=== PATIENT | male | born 1950 | race Caucasian/White ===

== ENCOUNTER → 2016-10-05 | Outpatient (CLI) | payer MEDICARE ==
[~2016-10-05] MED LIST: AMAR4TAB PO; ASPI81CH CHEW; ATOR1TAB18 PO; CANA300T PO; CARV3.12 PO; GABA300C5 PO; HYDR-3583 PO; ISOS60TA PO; LISI10TA3 PO; METF850T PO; METH750T PO; OXYC1TAB63 PO; PERC5TAB12 PO; PRED20 PO; ROBA500T PO; ROBA750T PO; WARF-23 PO
[2016-10-05 10:43] LABS: INTERNATIONAL NORMALIZED RATIO 1.7 RATIO; PROTHROMBIN TIME - PATIENT 19.6 SEC (9.8-11.6)
== END ==
LOC: CLAB 10:01
PROVIDERS: ATTEND Specialist
DX: Z51.81 Encounter for therapeutic drug level monitoring (principal); Z79.01 Long term (current) use of anticoagulants
CPT/HCPCS: 36415; 85610

== ENCOUNTER → 2016-10-12 | Outpatient (CLI) | payer MEDICARE ==
[2016-10-12 10:09] LABS: HDL CHOLESTEROL 34.1 MG/DL (40.0-60.0); INDIRECT BILIRUBIN 0.5 MG/DL (0.0-0.8); TOTAL BILIRUBIN ADULT 0.7 MG/DL (0.2-1.0)
== END ==
LOC: CLAB 09:12
PROVIDERS: ATTEND Family Medicine
DX: E78.2 Mixed hyperlipidemia (principal); E11.40 Type 2 diabetes mellitus with diabetic neuropathy, unspecified; Z79.899 Other long term (current) drug therapy
CPT/HCPCS: 36415; 80061; 80076; 82947

== ENCOUNTER → 2016-10-14 | Outpatient (CLI) | payer MEDICARE ==
[2016-10-14 10:15] LABS: INTERNATIONAL NORMALIZED RATIO 1.9 RATIO; PROTHROMBIN TIME - PATIENT 21.3 SEC (9.8-11.6)
[2016-10-14 10:37] LABS: ALKALINE PHOSPHATASE 79 U/L (45-117); ALT (GPT) 28 U/L (12-78); ANION GAP 7 MEQ/L (5-15); AST (GOT) 19 U/L (15-37); BICARBONATE 28.4 MEQ/L (21.0-32.0); BLOOD UREA NITROGEN 18 MG/DL (7-18); CHLORIDE 104 MEQ/L (98-107); GLOMERULAR FILTRATION RATE 64 ML/MIN (>89); GLUCOSE,FASTING 120 MG/DL (74-99); POTASSIUM 4.8 MEQ/L (3.5-5.1); SODIUM (NA) 139 MEQ/L (136-145); TOTAL BILIRUBIN ADULT 0.6 MG/DL (0.2-1.0)
[2016-10-14 16:06] LABS: HEMOGLOBIN A1a 1.1 %; HEMOGLOBIN A1b 2.5 %; HEMOGLOBIN Ao 81.8 %; HEMOGLOBIN P3 4.2 %
== END ==
LOC: CLAB 09:41
PROVIDERS: ATTEND Specialist
DX: E11.65 Type 2 diabetes mellitus with hyperglycemia (principal); I10 Essential (primary) hypertension; E78.00 Pure hypercholesterolemia, unspecified; Z51.81 Encounter for therapeutic drug level monitoring
CPT/HCPCS: 36415; 80053; 83036; 85610

== ENCOUNTER → 2016-10-24 | Outpatient (CLI) | payer MEDICARE ==
[2016-10-24 10:32] LABS: INTERNATIONAL NORMALIZED RATIO 1.8 RATIO; PROTHROMBIN TIME - PATIENT 20.9 SEC (9.8-11.6)
== END ==
LOC: CLAB 10:00
PROVIDERS: ATTEND Specialist
DX: Z51.81 Encounter for therapeutic drug level monitoring (principal)
CPT/HCPCS: 36415; 85610

== ENCOUNTER → 2016-10-31 | Outpatient (CLI) | payer MEDICARE ==
[2016-10-31 10:59] LABS: INTERNATIONAL NORMALIZED RATIO 2.2 RATIO; PROTHROMBIN TIME - PATIENT 25.1 SEC (9.8-11.6)
== END ==
LOC: CLAB 10:30
PROVIDERS: ATTEND Specialist
DX: Z51.81 Encounter for therapeutic drug level monitoring (principal)
CPT/HCPCS: 36415; 85610

== ENCOUNTER → 2016-11-07 | Outpatient (CLI) | payer MEDICARE ==
[2016-11-07 10:52] LABS: PROTHROMBIN TIME - PATIENT 22.8 SEC (9.8-11.6)
== END ==
LOC: CLAB 10:20
PROVIDERS: ATTEND Specialist
DX: Z51.81 Encounter for therapeutic drug level monitoring (principal)
CPT/HCPCS: 36415; 85610

== ENCOUNTER → 2016-11-14 | Outpatient (CLI) | payer MEDICARE ==
[2016-11-14 11:30] LABS: INTERNATIONAL NORMALIZED RATIO 1.8 RATIO; PROTHROMBIN TIME - PATIENT 20.9 SEC (9.8-11.6)
== END ==
LOC: CLAB 10:43
PROVIDERS: ATTEND Specialist
DX: Z51.81 Encounter for therapeutic drug level monitoring (principal)
CPT/HCPCS: 36415; 85610

== ENCOUNTER → 2016-11-21 | Outpatient (CLI) | payer MEDICARE ==
[2016-11-21 11:23] LABS: INTERNATIONAL NORMALIZED RATIO 1.5 RATIO; PROTHROMBIN TIME - PATIENT 17.3 SEC (9.8-11.6)
== END ==
LOC: CLAB 10:41
PROVIDERS: ATTEND Specialist
DX: Z51.81 Encounter for therapeutic drug level monitoring (principal)
CPT/HCPCS: 36415; 85610

== ENCOUNTER → 2016-11-28 | Outpatient (CLI) | payer MEDICARE ==
[2016-11-28 10:36] LABS: INTERNATIONAL NORMALIZED RATIO 1.9 RATIO; PROTHROMBIN TIME - PATIENT 21.8 SEC (9.8-11.6)
== END ==
LOC: CLAB 10:10
PROVIDERS: ATTEND Specialist
DX: Z51.81 Encounter for therapeutic drug level monitoring (principal)
CPT/HCPCS: 36415; 85610

== ENCOUNTER → 2016-12-05 | Outpatient (CLI) | payer MEDICARE ==
[2016-12-05 10:41] LABS: INTERNATIONAL NORMALIZED RATIO 1.2 RATIO; PROTHROMBIN TIME - PATIENT 12.9 SEC (9.8-11.6)
== END ==
LOC: CLAB 10:09
PROVIDERS: ATTEND Specialist
DX: Z51.81 Encounter for therapeutic drug level monitoring (principal); Z79.899 Other long term (current) drug therapy
CPT/HCPCS: 36415; 85610

== ENCOUNTER → 2016-12-08 | Outpatient (CLI) | payer MEDICARE ==
[2016-12-08 10:40] LABS: INTERNATIONAL NORMALIZED RATIO 1.4 RATIO; PROTHROMBIN TIME - PATIENT 15.6 SEC (9.8-11.6)
== END ==
LOC: CLAB 10:16
PROVIDERS: ATTEND Specialist
DX: Z51.81 Encounter for therapeutic drug level monitoring (principal)
CPT/HCPCS: 36415; 85610

== ENCOUNTER → 2016-12-14 | Outpatient (CLI) | payer MEDICARE ==
[2016-12-14 09:21] LABS: INTERNATIONAL NORMALIZED RATIO 3.3 RATIO; PROTHROMBIN TIME - PATIENT 37.9 SEC (9.8-11.6)
== END ==
LOC: CLAB 08:56
PROVIDERS: ATTEND Specialist
DX: Z51.81 Encounter for therapeutic drug level monitoring (principal); Z79.899 Other long term (current) drug therapy
CPT/HCPCS: 36415; 85610

== ENCOUNTER → 2016-12-19 | Outpatient (CLI) | payer MEDICARE ==
[2016-12-19 10:19] LABS: INTERNATIONAL NORMALIZED RATIO 4.3 RATIO; PROTHROMBIN TIME - PATIENT 50.2 SEC (9.8-11.6)
== END ==
LOC: CLAB 09:44
PROVIDERS: ATTEND Family Medicine
DX: Z51.81 Encounter for therapeutic drug level monitoring (principal)
CPT/HCPCS: 36415; 85610

== ENCOUNTER → 2016-12-23 | Outpatient (CLI) | payer MEDICARE ==
[2016-12-23 09:47] LABS: INTERNATIONAL NORMALIZED RATIO 1.3 RATIO; PROTHROMBIN TIME - PATIENT 15.1 SEC (9.8-11.6)
== END ==
LOC: CLAB 09:19
PROVIDERS: ATTEND Specialist
DX: Z51.81 Encounter for therapeutic drug level monitoring (principal)
CPT/HCPCS: 36415; 85610

== ENCOUNTER → 2016-12-30 | Outpatient (CLI) | payer MEDICARE ==
[2016-12-30 10:36] LABS: INTERNATIONAL NORMALIZED RATIO 2.9 RATIO; PROTHROMBIN TIME - PATIENT 33.5 SEC (9.8-11.6)
== END ==
LOC: CLAB 09:59
PROVIDERS: ATTEND Specialist
DX: Z51.81 Encounter for therapeutic drug level monitoring (principal)
CPT/HCPCS: 36415; 85610

== ENCOUNTER → 2017-01-10 | Outpatient (CLI) | payer MEDICARE ==
[2017-01-10 10:07] LABS: INTERNATIONAL NORMALIZED RATIO 3.3 RATIO
[2017-01-10 10:09] LABS: PROTHROMBIN TIME - PATIENT 38.1 SEC (9.8-11.6)
== END ==
LOC: CLAB 09:39
PROVIDERS: ATTEND Specialist
DX: Z51.81 Encounter for therapeutic drug level monitoring (principal)
CPT/HCPCS: 36415; 85610

== ENCOUNTER → 2017-01-18 | Outpatient (CLI) | payer MEDICARE ==
[2017-01-18 09:43] LABS: INTERNATIONAL NORMALIZED RATIO 3.2 RATIO; PROTHROMBIN TIME - PATIENT 36.9 SEC (9.8-11.6)
[2017-01-18 10:25] LABS: ALKALINE PHOSPHATASE 80 U/L (45-117); ALT (GPT) 34 U/L (12-78); ANION GAP 6 MEQ/L (5-15); AST (GOT) 28 U/L (15-37); BICARBONATE 30.2 MEQ/L (21.0-32.0); BLOOD UREA NITROGEN 16 MG/DL (7-18); CHLORIDE 103 MEQ/L (98-107); GLOMERULAR FILTRATION RATE 59 ML/MIN (>89); GLUCOSE,FASTING 129 MG/DL (74-99); SODIUM (NA) 139 MEQ/L (136-145); TOTAL BILIRUBIN ADULT 0.6 MG/DL (0.2-1.0)
[2017-01-18 16:11] LABS: HEMOGLOBIN A1a 1.2 %; HEMOGLOBIN A1b 2.3 %; HEMOGLOBIN Ao 82.5 %; HEMOGLOBIN LA1C 2.1 %; HEMOGLOBIN P3 4.2 %
== END ==
LOC: CLAB 09:06
PROVIDERS: ATTEND Internal Medicine Endocrinology, Diabetes & Metabolism
DX: E11.65 Type 2 diabetes mellitus with hyperglycemia (principal); I10 Essential (primary) hypertension; Z51.81 Encounter for therapeutic drug level monitoring
CPT/HCPCS: 36415; 80053; 83036; 85610

== ENCOUNTER → 2017-01-23 | Outpatient (CLI) | payer MEDICARE ==
[2017-01-23 10:17] LABS: INTERNATIONAL NORMALIZED RATIO 2.7 RATIO; PROTHROMBIN TIME - PATIENT 31.3 SEC (9.8-11.6)
== END ==
LOC: CLAB 09:40
PROVIDERS: ATTEND Specialist
DX: Z51.81 Encounter for therapeutic drug level monitoring (principal)
CPT/HCPCS: 36415; 85610

== ENCOUNTER → 2017-01-30 | Outpatient (CLI) | payer MEDICARE ==
[2017-01-30 10:59] LABS: INTERNATIONAL NORMALIZED RATIO 3.7 RATIO; PROTHROMBIN TIME - PATIENT 42.8 SEC (9.8-11.6)
== END ==
LOC: CLAB 09:44
PROVIDERS: ATTEND Specialist
DX: Z51.81 Encounter for therapeutic drug level monitoring (principal)
CPT/HCPCS: 36415; 85610

== ENCOUNTER → 2017-02-06 | Outpatient (CLI) | payer MEDICARE ==
[2017-02-06 11:00] LABS: INTERNATIONAL NORMALIZED RATIO 2.1 RATIO; PROTHROMBIN TIME - PATIENT 23.6 SEC (9.8-11.6)
== END ==
LOC: CLAB 10:21
PROVIDERS: ATTEND Specialist
DX: Z51.81 Encounter for therapeutic drug level monitoring (principal)
CPT/HCPCS: 36415; 85610

== ENCOUNTER → 2017-02-09 | Outpatient (CLI) | payer MEDICARE ==
[2017-02-09 11:42] LABS: INTERNATIONAL NORMALIZED RATIO 2.5 RATIO; PROTHROMBIN TIME - PATIENT 29.2 SEC (9.8-11.6)
== END ==
LOC: CLAB 10:57
PROVIDERS: ATTEND Specialist
DX: Z51.81 Encounter for therapeutic drug level monitoring (principal)
CPT/HCPCS: 36415; 85610

== ENCOUNTER → 2017-02-23 | Outpatient (CLI) | payer MEDICARE ==
[2017-02-23 10:35] LABS: INTERNATIONAL NORMALIZED RATIO 2.3 RATIO; PROTHROMBIN TIME - PATIENT 26.7 SEC (9.8-11.6)
== END ==
LOC: CLAB 09:45
PROVIDERS: ATTEND Specialist
DX: Z51.81 Encounter for therapeutic drug level monitoring (principal)
CPT/HCPCS: 36415; 85610

== ENCOUNTER → 2017-03-13 | Outpatient (CLI) | payer MEDICARE ==
[2017-03-13 11:06] LABS: INTERNATIONAL NORMALIZED RATIO 2.5 RATIO; PROTHROMBIN TIME - PATIENT 28.8 SEC (9.8-11.6)
== END ==
LOC: CLAB 10:15
PROVIDERS: ATTEND Specialist
DX: Z51.81 Encounter for therapeutic drug level monitoring (principal)
CPT/HCPCS: 36415; 85610

== ENCOUNTER → 2017-03-14 | Outpatient (CLI) | payer MEDICARE ==
[2017-03-14 10:38] LABS: AUTOMATED NEUTROPHIL # 4.4 TH/MM3 (1.8-7.7); BASOPHIL % 0.6 % (0.0-2.0); EOSINOPHIL # 0.1 TH/MM3 (0-0.4); EOSINOPHIL % 2.1 % (0.0-4.0); HEMATOCRIT 43.3 % (39.0-51.0); HEMO FLAGS DIFF FINAL; LYMPHOCYTE # 1.8 TH/MM3 (1.0-4.8); MEAN CORPUSCULAR HEMOGLOBIN 31.3 PG (27.0-34.0); MEAN CORPUSCULAR HGB CONC 33.7 % (32.0-36.0); MONO % 8.6 % (0.0-8.0); NEUT % 62.7 % (16.0-70.0); PLATELET COUNT 210 TH/MM3 (150-450); RED BLOOD COUNT 4.65 MIL/MM3 (4.50-5.90); RED CELL DISTRIBUTION WIDTH 14.4 % (11.6-17.2)
[2017-03-14 11:02] LABS: ALT (GPT) 29 U/L (12-78)
[2017-03-14 11:04] LABS: ALKALINE PHOSPHATASE 71 U/L (45-117); HDL CHOLESTEROL 32.9 MG/DL (40.0-60.0); LDL CHOLESTEROL 55 MG/DL (0-99); TOTAL BILIRUBIN ADULT 0.7 MG/DL (0.2-1.0)
[2017-03-14 11:05] LABS: ANION GAP 9 MEQ/L (5-15); BICARBONATE 25.8 MEQ/L (21.0-32.0); BLOOD UREA NITROGEN 20 MG/DL (7-18); CHLORIDE 102 MEQ/L (98-107); GLOMERULAR FILTRATION RATE 66 ML/MIN (>89); GLUCOSE,FASTING 119 MG/DL (74-99); SODIUM (NA) 137 MEQ/L (136-145)
[2017-03-14 11:06] LABS: AST (GOT) 28 U/L (15-37); POTASSIUM 5.1 MEQ/L (3.5-5.1)
== END ==
LOC: CLAB 10:20
PROVIDERS: ATTEND Family Medicine
DX: E78.2 Mixed hyperlipidemia (principal); I10 Essential (primary) hypertension; E11.42 Type 2 diabetes mellitus with diabetic polyneuropathy; Z79.899 Other long term (current) drug therapy
CPT/HCPCS: 36415; 80053; 80061; 85025

== ENCOUNTER → 2017-04-10 | Outpatient (CLI) | payer MEDICARE ==
[2017-04-10 10:15] LABS: INTERNATIONAL NORMALIZED RATIO 2.7 RATIO; PROTHROMBIN TIME - PATIENT 30.8 SEC (9.8-11.6)
== END ==
LOC: CLAB 09:20
PROVIDERS: ATTEND Specialist
DX: Z51.81 Encounter for therapeutic drug level monitoring (principal)
CPT/HCPCS: 36415; 85610

== ENCOUNTER → 2017-05-01 | Outpatient (CLI) | payer MEDICARE ==
[2017-05-01 10:57] LABS: INTERNATIONAL NORMALIZED RATIO 2.4 RATIO; PROTHROMBIN TIME - PATIENT 27.5 SEC (9.8-11.6)
== END ==
LOC: CLAB 09:35
PROVIDERS: ATTEND Specialist
DX: Z51.81 Encounter for therapeutic drug level monitoring (principal)
CPT/HCPCS: 36415; 85610

== ENCOUNTER → 2017-05-22 | Outpatient (CLI) | payer MEDICARE ==
[2017-05-22 10:04] LABS: INTERNATIONAL NORMALIZED RATIO 2.7 RATIO; PROTHROMBIN TIME - PATIENT 30.9 SEC (9.8-11.6)
== END ==
LOC: CLAB 09:37
PROVIDERS: ATTEND Specialist
DX: Z51.81 Encounter for therapeutic drug level monitoring (principal)
CPT/HCPCS: 36415; 85610

== ENCOUNTER → 2017-06-12 | Outpatient (CLI) | payer MEDICARE ==
[2017-06-12 11:04] LABS: INTERNATIONAL NORMALIZED RATIO 2.3 RATIO; PROTHROMBIN TIME - PATIENT 25.8 SEC (9.8-11.6)
== END ==
LOC: CLAB 10:21
PROVIDERS: ATTEND Specialist
DX: Z51.81 Encounter for therapeutic drug level monitoring (principal)
CPT/HCPCS: 36415; 85610

== ENCOUNTER → 2017-06-23 | Outpatient (CLI) | payer MEDICARE ==
[2017-06-23 10:56] LABS: ANION GAP 5 MEQ/L (5-15); BICARBONATE 29.5 MEQ/L (21.0-32.0); BLOOD UREA NITROGEN 20 MG/DL (7-18); CHLORIDE 104 MEQ/L (98-107); GLOMERULAR FILTRATION RATE 66 ML/MIN (>89); GLUCOSE,FASTING 119 MG/DL (74-99); POTASSIUM 5.4 MEQ/L (3.5-5.1); SODIUM (NA) 138 MEQ/L (136-145)
[2017-06-23 10:59] LABS: ALKALINE PHOSPHATASE 65 U/L (45-117); ALT (GPT) 20 U/L (12-78); AST (GOT) 17 U/L (15-37); TOTAL BILIRUBIN ADULT 0.6 MG/DL (0.2-1.0)
[2017-06-23 12:30] LABS: HEMOGLOBIN A1a 1.2 %; HEMOGLOBIN A1b 2.4 %; HEMOGLOBIN Ao 82.3 %; HEMOGLOBIN LA1C 2.1 %; HEMOGLOBIN P3 4.1 %
== END ==
LOC: CLAB 10:03
PROVIDERS: ATTEND Internal Medicine Endocrinology, Diabetes & Metabolism
DX: E11.65 Type 2 diabetes mellitus with hyperglycemia (principal); E78.2 Mixed hyperlipidemia; I10 Essential (primary) hypertension
CPT/HCPCS: 36415; 80053; 83036

== ENCOUNTER → 2017-07-10 | Outpatient (CLI) | payer MEDICARE ==
[2017-07-10 10:42] LABS: PROTHROMBIN TIME - PATIENT 22.7 SEC (9.8-11.6)
== END ==
LOC: CLAB 10:09
PROVIDERS: ATTEND Specialist
DX: Z51.81 Encounter for therapeutic drug level monitoring (principal)
CPT/HCPCS: 36415; 85610

== ENCOUNTER → 2017-08-07 | Outpatient (CLI) | payer MEDICARE ==
[~2017-08-07] MED LIST changes: +ASPI-516 CHEW; -ASPI81CH CHEW; -ATOR1TAB18 PO; +ATOR80TA45 PO
[2017-08-07 10:11] LABS: INTERNATIONAL NORMALIZED RATIO 3.5 RATIO; PROTHROMBIN TIME - PATIENT 40.5 SEC (9.8-11.6)
== END ==
LOC: CLAB 09:41
PROVIDERS: ATTEND Specialist
DX: Z51.81 Encounter for therapeutic drug level monitoring (principal)
CPT/HCPCS: 36415; 85610

== ENCOUNTER → 2017-08-14 | Outpatient (CLI) | payer MEDICARE ==
[2017-08-14 10:09] LABS: PROTHROMBIN TIME - PATIENT 34.8 SEC (9.8-11.6)
== END ==
LOC: CLAB 09:39
PROVIDERS: ATTEND Specialist
DX: Z51.81 Encounter for therapeutic drug level monitoring (principal)
CPT/HCPCS: 36415; 85610

== ENCOUNTER → 2017-08-28 | Outpatient (CLI) | payer MEDICARE ==
[2017-08-28 10:13] LABS: INTERNATIONAL NORMALIZED RATIO 3.6 RATIO
== END ==
LOC: CLAB 09:48
PROVIDERS: ATTEND Specialist
DX: Z51.81 Encounter for therapeutic drug level monitoring (principal)
CPT/HCPCS: 36415; 85610

== ENCOUNTER → 2017-09-04 | Outpatient (CLI) | payer MEDICARE ==
[2017-09-04 10:48] LABS: INTERNATIONAL NORMALIZED RATIO 2.7 RATIO; PROTHROMBIN TIME - PATIENT 27.7 SEC (9.8-11.6)
== END ==
LOC: CLAB 10:18
PROVIDERS: ATTEND Specialist
DX: Z51.81 Encounter for therapeutic drug level monitoring (principal)
CPT/HCPCS: 36415; 85610

== ENCOUNTER → 2017-09-11 | Outpatient (CLI) | payer MEDICARE ==
[2017-09-11 11:11] LABS: INTERNATIONAL NORMALIZED RATIO 3.4 RATIO; PROTHROMBIN TIME - PATIENT 34.2 SEC (9.8-11.6)
[2017-09-11 11:18] LABS: MICRO ALBUMIN RANDOM URINE RAW 16.6 MG/L (0.0-30.0)
[2017-09-11 11:36] LABS: HDL CHOLESTEROL 32.4 MG/DL (40.0-60.0); INDIRECT BILIRUBIN 0.5 MG/DL (0.0-0.8); TOTAL BILIRUBIN ADULT 0.7 MG/DL (0.2-1.0)
== END ==
LOC: CLAB 10:24
PROVIDERS: ATTEND Specialist
DX: E78.2 Mixed hyperlipidemia (principal); Z51.81 Encounter for therapeutic drug level monitoring; Z79.899 Other long term (current) drug therapy
CPT/HCPCS: 36415; 80061; 80076; 82043; 85610

== ENCOUNTER → 2017-09-22 | Outpatient (CLI) | payer MEDICARE ==
[2017-09-22 09:04] LABS: INTERNATIONAL NORMALIZED RATIO 3.1 RATIO; PROTHROMBIN TIME - PATIENT 31.2 SEC (9.8-11.6)
== END ==
LOC: CLAB 08:17
PROVIDERS: ATTEND Family Medicine
DX: R79.1 Abnormal coagulation profile (principal)
CPT/HCPCS: 36415; 85610

== ENCOUNTER → 2017-10-02 | Outpatient (CLI) | payer MEDICARE ==
[2017-10-02 10:40] LABS: INTERNATIONAL NORMALIZED RATIO 3.4 RATIO; PROTHROMBIN TIME - PATIENT 33.9 SEC (9.8-11.6)
== END ==
LOC: CLAB 09:40
PROVIDERS: ATTEND Specialist
DX: R79.1 Abnormal coagulation profile (principal)
CPT/HCPCS: 36415; 85610

== ENCOUNTER → 2017-10-05 | Outpatient (CLI) | payer MEDICARE ==
[2017-10-05 09:16] LABS: INTERNATIONAL NORMALIZED RATIO 1.7 RATIO; PROTHROMBIN TIME - PATIENT 17.5 SEC (9.8-11.6)
== END ==
LOC: CLAB 08:51
PROVIDERS: ATTEND Specialist
DX: R79.1 Abnormal coagulation profile (principal)
CPT/HCPCS: 36415; 85610

== ENCOUNTER → 2017-10-10 | Outpatient (CLI) | payer MEDICARE ==
[2017-10-10 10:39] LABS: INTERNATIONAL NORMALIZED RATIO 2.5 RATIO; PROTHROMBIN TIME - PATIENT 24.9 SEC (9.8-11.6)
== END ==
LOC: CLAB 10:04
PROVIDERS: ATTEND Specialist
DX: R79.1 Abnormal coagulation profile (principal)
CPT/HCPCS: 36415; 85610

== ENCOUNTER → 2017-10-17 | Outpatient (CLI) | payer MEDICARE ==
[2017-10-17 09:51] LABS: INTERNATIONAL NORMALIZED RATIO 2.7 RATIO
== END ==
LOC: CLAB 09:24
PROVIDERS: ATTEND Specialist
DX: R79.1 Abnormal coagulation profile (principal)
CPT/HCPCS: 36415; 85610

== ENCOUNTER → 2017-10-24 | Outpatient (CLI) | payer MEDICARE ==
[2017-10-24 09:47] LABS: INTERNATIONAL NORMALIZED RATIO 1.6 RATIO
== END ==
LOC: CLAB 09:16
PROVIDERS: ATTEND Specialist
DX: R79.1 Abnormal coagulation profile (principal)
CPT/HCPCS: 36415; 85610

== ENCOUNTER → 2017-10-27 | Outpatient (CLI) | payer MEDICARE ==
[2017-10-27 09:44] LABS: ALBUMIN 3.8 GM/DL (3.4-5.0); AST (GOT) 24 U/L (15-37); BICARBONATE 28.4 MEQ/L (21.0-32.0); BLOOD UREA NITROGEN 13 MG/DL (7-18); CALCIUM 9.6 MG/DL (8.5-10.1); CHLORIDE 105 MEQ/L (98-107); CREATININE 1.06 MG/DL (0.60-1.30); GLOMERULAR FILTRATION RATE 70 ML/MIN (>89); GLUCOSE,FASTING 91 MG/DL (74-99); SODIUM (NA) 139 MEQ/L (136-145)
[2017-10-27 09:45] LABS: ALT (GPT) 26 U/L (12-78)
[2017-10-27 09:47] LABS: ALKALINE PHOSPHATASE 78 U/L (45-117); TOTAL BILIRUBIN ADULT 0.6 MG/DL (0.2-1.0); TOTAL PROTEIN 7.4 GM/DL (6.4-8.2)
[2017-10-27 15:08] LABS: HEMOGLOBIN A1C 7.6 % (4.3-6.0)
== END ==
LOC: CLAB 08:46
PROVIDERS: ATTEND Internal Medicine Endocrinology, Diabetes & Metabolism
DX: E11.65 Type 2 diabetes mellitus with hyperglycemia (principal); I10 Essential (primary) hypertension; E78.2 Mixed hyperlipidemia
CPT/HCPCS: 36415; 80053; 82043; 83036

== ENCOUNTER → 2017-10-31 | Outpatient (CLI) | payer MEDICARE ==
[2017-10-31 09:49] LABS: INTERNATIONAL NORMALIZED RATIO 2.2 RATIO; PROTHROMBIN TIME - PATIENT 22.1 SEC (9.8-11.6)
== END ==
LOC: CLAB 09:18
PROVIDERS: ATTEND Specialist
DX: R79.1 Abnormal coagulation profile (principal)
CPT/HCPCS: 36415; 85610

== ENCOUNTER → 2017-11-10 | Outpatient (CLI) | payer MEDICARE ==
[2017-11-10 11:16] LABS: PROTHROMBIN TIME - PATIENT 20.7 SEC (9.8-11.6)
== END ==
LOC: CLAB 10:19
PROVIDERS: ATTEND Specialist
DX: R79.1 Abnormal coagulation profile (principal)
CPT/HCPCS: 36415; 85610

== ENCOUNTER → 2017-11-20 | Outpatient (CLI) | payer MEDICARE ==
[2017-11-20 10:26] LABS: INTERNATIONAL NORMALIZED RATIO 3.9 RATIO; PROTHROMBIN TIME - PATIENT 39.5 SEC (9.8-11.6)
== END ==
LOC: CLAB 09:52
PROVIDERS: ATTEND Specialist
DX: R79.1 Abnormal coagulation profile (principal)
CPT/HCPCS: 36415; 85610

== ENCOUNTER → 2017-11-27 | Outpatient (CLI) | payer MEDICARE ==
[2017-11-27 11:22] LABS: INTERNATIONAL NORMALIZED RATIO 2.7 RATIO; PROTHROMBIN TIME - PATIENT 27.4 SEC (9.8-11.6)
== END ==
LOC: CLAB 10:48
PROVIDERS: ATTEND Specialist
DX: R79.1 Abnormal coagulation profile (principal)
CPT/HCPCS: 36415; 85610

== ENCOUNTER → 2017-11-30 | Outpatient (CLI) | payer MEDICARE ==
[2017-11-30 11:37] LABS: INTERNATIONAL NORMALIZED RATIO 1.8 RATIO; PROTHROMBIN TIME - PATIENT 18.1 SEC (9.8-11.6)
== END ==
LOC: CLAB 11:05
PROVIDERS: ATTEND Specialist
DX: R79.1 Abnormal coagulation profile (principal)
CPT/HCPCS: 36415; 85610

== ENCOUNTER → 2017-12-07 | Outpatient (CLI) | payer MEDICARE ==
[2017-12-07 10:49] LABS: INTERNATIONAL NORMALIZED RATIO 2.1 RATIO; PROTHROMBIN TIME - PATIENT 21.3 SEC (9.8-11.6)
== END ==
LOC: CLAB 10:17
PROVIDERS: ATTEND Specialist
DX: R79.1 Abnormal coagulation profile (principal)
CPT/HCPCS: 36415; 85610

== ENCOUNTER → 2017-12-14 | Outpatient (CLI) | payer MEDICARE ==
[2017-12-14 11:08] LABS: PROTHROMBIN TIME - PATIENT 27.5 SEC (9.8-11.6)
[2017-12-14 11:09] LABS: INTERNATIONAL NORMALIZED RATIO 2.7 RATIO
== END ==
LOC: CLAB 10:05
PROVIDERS: ATTEND Specialist
DX: R79.1 Abnormal coagulation profile (principal)
CPT/HCPCS: 36415; 85610

== ENCOUNTER → 2017-12-21 | Outpatient (CLI) | payer MEDICARE ==
[2017-12-21 11:58] LABS: INTERNATIONAL NORMALIZED RATIO 2.2 RATIO; PROTHROMBIN TIME - PATIENT 22.6 SEC (9.8-11.6)
== END ==
LOC: CLAB 11:12
PROVIDERS: ATTEND Specialist
DX: R79.1 Abnormal coagulation profile (principal)
CPT/HCPCS: 36415; 85610

== ENCOUNTER → 2017-12-29 | Outpatient (CLI) | payer MEDICARE ==
[2017-12-29 10:15] LABS: PROTHROMBIN TIME - PATIENT 20.7 SEC (9.8-11.6)
== END ==
LOC: CLAB 09:40
PROVIDERS: ATTEND Specialist
DX: R79.1 Abnormal coagulation profile (principal)
CPT/HCPCS: 36415; 85610

== ENCOUNTER → 2018-01-03 | Outpatient (CLI) | payer MEDICARE ==
[2018-01-03 10:10] LABS: INTERNATIONAL NORMALIZED RATIO 2.9 RATIO; PROTHROMBIN TIME - PATIENT 29.3 SEC (9.8-11.6)
== END ==
LOC: CLAB 09:47
PROVIDERS: ATTEND Specialist
DX: R79.1 Abnormal coagulation profile (principal)
CPT/HCPCS: 36415; 85610

== ENCOUNTER → 2018-01-10 | Outpatient (CLI) | payer MEDICARE ==
[2018-01-10 09:38] LABS: INTERNATIONAL NORMALIZED RATIO 1.9 RATIO; PROTHROMBIN TIME - PATIENT 19.6 SEC (9.8-11.6)
== END ==
LOC: CLAB 09:09
PROVIDERS: ATTEND Specialist
DX: R79.1 Abnormal coagulation profile (principal)
CPT/HCPCS: 36415; 85610

== ENCOUNTER → 2018-01-17 | Outpatient (CLI) | payer MEDICARE ==
[2018-01-17 10:44] LABS: INTERNATIONAL NORMALIZED RATIO 2.4 RATIO; PROTHROMBIN TIME - PATIENT 23.9 SEC (9.8-11.6)
== END ==
LOC: CLAB 10:15
PROVIDERS: ATTEND Specialist
DX: R79.1 Abnormal coagulation profile (principal)
CPT/HCPCS: 36415; 85610

== ENCOUNTER → 2018-01-26 | Outpatient (CLI) | payer MEDICARE ==
[2018-01-26 10:34] LABS: INTERNATIONAL NORMALIZED RATIO 2.5 RATIO; PROTHROMBIN TIME - PATIENT 24.8 SEC (9.8-11.6)
== END ==
LOC: CLAB 10:10
PROVIDERS: ATTEND Specialist
DX: R79.1 Abnormal coagulation profile (principal)
CPT/HCPCS: 36415; 85610

== ENCOUNTER → 2018-02-09 | Outpatient (CLI) | DX: R79.1 Abnormal coagulation profile (principal) ==

== ENCOUNTER → 2018-02-20 | Outpatient (CLI) | payer MEDICARE ==
[~2018-02-20] MED LIST changes: +CIPR-9 PO; +DILA2TAB4 PO; +GABA600T PO; +MS C15TA7 PO; +NITR0.4S SL; +WALKER WHEELS/F1 MIS; +WARF-60 PO
[2018-02-20 10:11] LABS: INTERNATIONAL NORMALIZED RATIO 2.3 RATIO; PROTHROMBIN TIME - PATIENT 23.4 SEC (9.8-11.6)
== END ==
LOC: CLAB 09:35
PROVIDERS: ATTEND Specialist
DX: R79.1 Abnormal coagulation profile (principal)
CPT/HCPCS: 36415; 85610

== ENCOUNTER → 2018-02-27 | Outpatient (CLI) | payer MEDICARE ==
[~2018-02-27] MED LIST changes: -CIPR-9 PO; -DILA2TAB4 PO; -GABA600T PO; -MS C15TA7 PO; -NITR0.4S SL; -WALKER WHEELS/F1 MIS; -WARF-60 PO
[2018-02-27 09:29] LABS: INTERNATIONAL NORMALIZED RATIO 2.3 RATIO; PROTHROMBIN TIME - PATIENT 23.2 SEC (9.8-11.6)
== END ==
LOC: CLAB 09:02
PROVIDERS: ATTEND Specialist
DX: R79.1 Abnormal coagulation profile (principal)
CPT/HCPCS: 36415; 85610

== ENCOUNTER → 2018-03-07 | Outpatient (CLI) | payer MEDICARE ==
[~2018-03-07] MED LIST changes: +CIPR-9 PO; +DILA2TAB4 PO; +GABA600T PO; +MS C15TA7 PO; +NITR0.4S SL; +WALKER WHEELS/F1 MIS; +WARF-60 PO
[2018-03-07 08:49] LABS: AUTOMATED NEUTROPHIL # 4.7 TH/MM3 (1.8-7.7); BASOPHIL % 0.6 % (0.0-2.0); EOSINOPHIL # 0.2 TH/MM3 (0-0.4); EOSINOPHIL % 2.8 % (0.0-4.0); HEMATOCRIT 44.8 % (39.0-51.0); HEMOGLOBIN 15.3 GM/DL (13.0-17.0); LYMPH % 25.1 % (9.0-44.0); LYMPHOCYTE # 1.9 TH/MM3 (1.0-4.8); MEAN CELL VOLUME 94.4 FL (80.0-100.0); MEAN CORPUSCULAR HEMOGLOBIN 32.3 PG (27.0-34.0); MEAN CORPUSCULAR HGB CONC 34.2 % (32.0-36.0); MEAN PLATELET VOLUME 7.4 FL (7.0-11.0); MONO % 9.3 % (0.0-8.0); MONOCYTE # 0.7 TH/MM3 (0-0.9); NEUT % 62.2 % (16.0-70.0); PLATELET COUNT 222 TH/MM3 (150-450); RED BLOOD COUNT 4.74 MIL/MM3 (4.50-5.90); RED CELL DISTRIBUTION WIDTH 13.9 % (11.6-17.2); WHITE BLOOD COUNT 7.5 TH/MM3 (4.0-11.0)
[2018-03-07 08:58] LABS: INTERNATIONAL NORMALIZED RATIO 2.1 RATIO; PROTHROMBIN TIME - PATIENT 21.7 SEC (9.8-11.6)
[2018-03-07 09:04] LABS: ALBUMIN 3.8 GM/DL (3.4-5.0); AST (GOT) 23 U/L (15-37); BICARBONATE 27.1 MEQ/L (21.0-32.0); BLOOD UREA NITROGEN 20 MG/DL (7-18); CALCIUM 9.4 MG/DL (8.5-10.1); CREATININE 1.19 MG/DL (0.60-1.30); GLOMERULAR FILTRATION RATE 61 ML/MIN (>89); GLUCOSE,FASTING 124 MG/DL (74-99)
[2018-03-07 09:05] LABS: ALT (GPT) 35 U/L (12-78)
[2018-03-07 09:08] LABS: ALKALINE PHOSPHATASE 82 U/L (45-117); CHLORIDE 103 MEQ/L (98-107); SODIUM (NA) 139 MEQ/L (136-145); TOTAL BILIRUBIN ADULT 0.7 MG/DL (0.2-1.0); TOTAL PROTEIN 7.5 GM/DL (6.4-8.2)
--- NOTE | 2018-03-07 09:37 | RADRPT ---
EXAM DATE: 03/07/2018 9:20 AM EDT AGE/SEX: 67 years / Male INDICATIONS: Evaluate for pneumonia, pneumothorax, or any communicable disease. Pre op lower back singh rgery. CLINICAL DATA: This is the patient's initial encounter. Patient reports that signs and symptoms have been present for 1 day and indicates a pain score of 0/10. MEDICAL/SURGICAL HISTORY: None. None. COMPARISON: No prior exams available for comparison. FINDINGS: PA and lateral views of the chest demonstrate the lungs to be symmetrically aerated without evidence of mass, infiltrate or effusion. The cardiomediastinal contours are unremarkable. Mild degenerative c hanges thoracic spine. CONCLUSION: Negative for acute process Electronically signed by: William Waldrop MD 03/07/2018 9:36 AM EDT
--- NOTE | 2018-03-07 13:07 | EKG ---
Date Performed: 03/07/2018 Time Performed: 08:42:41 PTAGE: 67 years EKG: Sinus rhythm POSSIBLE ANTERIOR MYOCARDIAL INFARCTION, OF INDETERMINATE AGE INFERIOR MYOCARDIAL INFARCTION, OF IND ETERMINATE AGE MODERATE T-WAVE ABNORMALITY, CONSIDER LATERAL ISCHEMIA ABNORMAL ECG PREVIOUS TRACING : 08/03/2016 13.32 DOCTOR: Satya Brown Interpretating Date/Time 03/07/2018 13:03:48
== END ==
LOC: CPRE 08:06
PROVIDERS: ATTEND Neurological Surgery
DX: Z01.810 Encounter for preprocedural cardiovascular examination (principal); Z01.812 Encounter for preprocedural laboratory examination; Z01.818 Encounter for other preprocedural examination; R94.31 Abnormal electrocardiogram [ECG] [EKG]; M43.16 Spondylolisthesis, lumbar region; M48.062 Spinal stenosis, lumbar region with neurogenic claudication; M54.16 Radiculopathy, lumbar region
CPT/HCPCS: 36415; 71046; 80053; 85025; 85610; 85730; 87640; 87641; 93005

== ENCOUNTER 2018-03-12 09:06 | Inpatient (IN) | payer MEDICARE ==
[~2018-03-12] VITALS: Ht 177.8 cm; Wt 84.3 kg
[~2018-03-12 09:06] MED LIST changes: -DILA2TAB4 PO; -GABA300C5 PO; -METH750T PO; -MS C15TA7 PO; -OXYC1TAB63 PO; -PERC5TAB12 PO; -PRED20 PO; -ROBA750T PO; -WALKER WHEELS/F1 MIS; -WARF-23 PO
[2018-03-12] MEDS ORDERED: SODIUM CHLORID 0.9% 500 ML IV PRN (10:00)
[2018-03-12] MEDS ORDERED: POVIDONE IODINE 5% (ANTISEPSIS KIT) 4 APPLICATIONS EACH NARE PRN (10:00)
[2018-03-12] MEDS ORDERED: CHLORHEXIDINE GLUCONATE 2 % 1 PACK (2 CLOTHS) TOPICAL PRN (10:00)
[2018-03-12] MEDS ORDERED: ceFAZolin 1,000 MG/NS 100 ML IV SCH ×2 (10:00)
[2018-03-12] MEDS ORDERED: LACTATED RINGER'S 1000 ML INJ 1,000 ML IV SCH (10:00)
[2018-03-12] MEDS ORDERED: LACTATED RINGER'S 1000 ML IV PRN (10:00)
[2018-03-12] MEDS ORDERED: METOPROLOL TARTRATE 25 MG TAB PO PRN (10:00)
[2018-03-12 10:57] LABS: INTERNATIONAL NORMALIZED RATIO 1.1 RATIO; PROTHROMBIN TIME - PATIENT 10.7 SEC (9.8-11.6)
[2018-03-12] MEDS ORDERED: LIDOCAINE 1%/EPINEPHrine 1:100,000 SOLN 20 ML VIAL ONE (11:26)
[2018-03-12] MEDS ORDERED: GELFOAM SIZE 100 ONE (11:26)
[2018-03-12] MEDS ORDERED: GENTAMICIN SULFATE 80 MG/2 ML VIAL ONE (11:26)
[2018-03-12] MEDS ORDERED: THROMBIN (TOPICAL) 5,000 UNIT VIAL ONE (11:26)
[2018-03-12] MEDS ORDERED: ceFAZolin 2 GM PREMIX 50 ML ONE (11:27)
[2018-03-12] MEDS ORDERED: fentaNYL CITRATE 250 MCG/5 ML AMP ONE (11:57)
[2018-03-12] MEDS ORDERED: ceFAZolin INJ 1,000 MG VIAL IV ONE (12:00)
[2018-03-12] MEDS ORDERED: PROPOFOL 200 MG/20 ML AMP IV ONE (12:00)
[2018-03-12] MEDS ORDERED: LIDOCAINE HCL 1% PF 5 ML SYRINGE OTHER ONE (12:00)
[2018-03-12] MEDS ORDERED: DEXAMETHASONE SOD PHOS 4 MG/ML VIAL IV ONE (12:00)
[2018-03-12] MEDS ORDERED: PHENYLEPH/NS 1000 MCG/10 ML SYR IV ONE (12:00)
[2018-03-12] MEDS ORDERED: ROCURONIUM INJ 50 MG/5 ML SYRINGE IV PUSH ONE (12:00)
[2018-03-12] MEDS ORDERED: ONDANSETRON HCL 4 MG/2 ML VIAL IV PUSH ONE (12:00)
[2018-03-12] MEDS ORDERED: PROPOFOL 500 MG/50 ML INJ 50 ML ONE (12:06)
[2018-03-12] MEDS ORDERED: ceFAZolin INJ 1,000 MG VIAL ONE (12:32)
[2018-03-12] MEDS ORDERED: HEPARIN SODIUM - SQ 10,000 UNITS/ML VIAL ONE ×2 (13:25→13:49)
[2018-03-12] MEDS ORDERED: SUFentanil INJ 250 MCG/5 ML AMP ONE (14:29)
[2018-03-12] MEDS ORDERED: PROPOFOL 500 MG/50 ML INJ 100 ML ONE (14:29)
[2018-03-12] MEDS ORDERED: BUPIVACAINE LIPOSOME PF 1.3% 20 ML VIAL ONE (18:34)
[2018-03-12] MEDS ORDERED: BUPIVACAINE LIPOSOME PF 1.3% 20 ML VIAL INFIL ONE (18:35)
[2018-03-12] MEDS ORDERED: BUPIVACAINE HCL PF 0.25% 30 ML VIAL ONE (20:17)
[2018-03-12] MEDS: METHOCARBAMOL 500 MG TAB PO SCH (22:00)
[2018-03-12] MEDS: D5-NS + KCL 20 MEQ INJ 1,000 ML IV SCH (22:00)
[2018-03-12] MEDS: PCA - TOTAL MG DILAUDID DELIVERED PER SHIFT OTHER SCH (22:00)
[2018-03-12] MEDS ORDERED: *MEPERIDINE 25 MG INJ VIAL PERIprocedural Use ONLY ONE (22:00)
[2018-03-12] MEDS ORDERED: DO NOT ADM ANY ANTICOAGULANT DRUGS PRN (22:00)
[2018-03-12] MEDS ORDERED: NALOXONE HCL 0.4 MG/ML AMP IV PUSH PRN (22:00)
--- NOTE | 2018-03-12 22:00 | PD.OP ---
Operative Report Date of Surgery: Mar 12, 2018 Preoperative Diagnosis: (1) Lumbar radiculopathy (2) Spondylolisthesis of lumbar region (3) Lumbar canal stenosis 1. 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 Grade 1 L4-5 spondylolisthesis 3. Right lumbar radiculopathy 4. Neurogenic claudication Postoperative Diagnosis: (1) Lumbar radiculopathy (2) Spondylolisthesis of lumbar region (3) Lumbar canal stenosis 1. 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 Grade 1 L4-5 spondylolisthesis 3. Right lumbar radiculopathy 4. Neurogenic claudication 5. Right L3-4 synovial cyst Procedure: 1. Bilateral L3-4 and L4-5 decompressive semi-laminectomy 2. Resection left L3-4 synovial cyst 3. Right L4-5 facetectomy, foraminotomy, decompression bilateral L4 and L5 nerve roots 4. L4-5 discectomy, interbody fusion, PEEK cage, autograft and allograft bone 5. Bilateral L4-5 posterior instrumentation with pedicle screw fixation Anesthesia: General Surgeon: Shay Jones Iv Therapy Nurse(s): Elise Serrano Operation and Findings: Indications: 67-year-old male with progressive lumbar radiculopathy, claudication symptoms, primarily right L5 distribution. Preoperative imaging study reveals severe L3-4 and L4-5 canal and lateral recess stenosis. Grade 1 L4-5 spondylolisthesis. Findings: Extremely severe L3-4 and L4-5 diffuse canal stenosis, hypertrophied ligamentum flavum. Significant right L4-5 foraminal stenosis and facet hypertrophy. Moderate left L3-4 synovial cyst impinging the lateral recess Procedure in detail: The patient was brought to the operating room and general endotracheal anesthesia induced without difficulty Lines were established per anesthesia Sequential compression devices were in place The patient was positioned prone on the concentric Jose table with the side bolsters and all extremities appropriately padded Leads for intraoperative neuro monitoring were placed prior to positioning and a baseline study obtained Appropriate timeout procedure was performed with all personnel present and in agreement The lumbar region was shaved with clippers and sterilely prepped and draped 1% Xylocaine with epinephrine was used for local infiltration over the incision site which was made at the midline L3-5 level . The incision was carried sharply down to the lumbodorsal fascia which was sharply incised Veras elevator was used for subperiosteal elevation of paraspinous musculature and fascia away from the lamina and spinous processes of L3 through L5 bilateral. The deep self-retaining retractor was placed The appropriate levels were verified with intraoperative C-arm The microscope was moved into place and used for the remainder of the procedure including the closure The entry point for the bilateral L4 pedicle screws were determined by anatomic and radiographic landmarks. The pedicle screw site at the bilateral L4 level was prepared with the awl followed by the pedicle finder and the tap. The ball tip probe was used to probe the pedicle screw site to ensure that there was no breakout through the pedicle. The appropriate size pedicle screw was placed at each pedicle screw site Due to the patient's extensive lumbar muscle mass oblique angle of the L5 pedicles, the L5 pedicles were approached from a fascial trans-muscular approach through the midline incision on each side using the Jamshidi needle which was placed with AP and lateral C-arm imaging. The guidewire was placed through each Jamshidi needle and the cannula withdrawn. The dilators were used to place the cannulated tap used to prepare the bilateral L5 pedicles and the appropriate size cannulated screw was placed at the bilateral L5 pedicle. The screw placement was verified with intraoperative C-arm and intraoperative neural monitoring and felt to be satisfactory. The TPS drill with a 5 mm bone bur followed by the Kerrison rongeur was used to remove the inferior two thirds of the right L3 lamina at the cephalad level of the decompression and the superior aspect of the right L4 lamina at the caudal level of the decompression. Working across the midline from right to left, the ventral left L3 and L4 lamina and medial left L3-4 facet was removed with the TPS drill. At the left L3-4 level the similar procedure was performed starting on the left and working across from left to right. At the left L3-4 level there is severe hypertrophy of the ligamentum flavum. There was noted to be a left L3-4 synovial cyst impinging on the lateral thecal sac and lateral recess. Hypertrophied ligamentum flavum at each level on each side was elevated away from the thecal sac and exiting nerve roots with the thin ligament dissector and resected with a 15 blade knife and Kerrison rongeur. The left L3-4 synovial cyst was somewhat adherent to the thecal sac and was released with the microdissectors and resected along with the medial facet and hypertrophied ligamentum flavum. The thecal sac and exiting nerve root were freed up from surrounding adhesions with the microdissectors and gently retracted medially revealing the underlying disc and annulus. Extensive adhesions were noted adjacent to the thecal sac at the right L4-5 level. These were carefully taken down with the microdissectors. At the right L4-5 level there is significant foraminal stenosis and facet hypertrophy impinging on the right L3 and L4 nerve roots. A total right L4-5 facetectomy was performed to totally decompress the neuroforamen and the exiting nerve roots and allow room for adequate cage placement. There was moderate subannular disc herniation noted at the right L4-5 level.. The right L4-5 annulus was incised with the 11 blade knife and discectomy performed with pituitary biopsy forceps and straight and angled curettes The endplate scrapers were used to decorticate the endplates and any remaining debris was removed with the antibiotic irrigation and suction and pituitary biopsy forceps The appropriate size PEEK cage was packed with retained lamina cancellus autograft And a small amount of demineralized bone matrix The cage was placed at the L4-5 level with a good fit of the cage. The placement was checked under the microscope and with intraoperative C-arm and felt to be satisfactory. The thecal sac and nerve roots were probed with the long blunt nerve hook and felt to be well decompressed The rods were placed across the pedicle screws on each side. The locking caps were secured with the torque wrench and anti-torque device The entire construct was checked with intraoperative C-arm and felt to be satisfactory The region was well irrigated with antibiotic irrigation The posterior lateral structures at the bilateral L4-5 levels were decorticated with the TPS drill The shavings were left in place, to which was added the remaining autograft and allograft bone which was firmly packed in place for the posterior lateral fusion. The 7 mm flat fluted drain was left in place at the operative side and brought out through a incision at the upper lumbar region and secured to the skin with nylon suture and attached to sterile suction bleeding was carefully controlled with the bipolar forceps The closure was performed with 0 Vicryl interrupted for the deep and superficial fascia, with 3-0 Vicryl for the subcutaneous closure and 4-0 Vicryl running subcuticular closure. Dressings sterile Mastisol, Steri-Strips and Primapore was placed The patient was turned into supine position and taken to recovery room in stable condition All counts were correct at the end of the case Estimated blood loss was 400 cc No specimen was sent to pathology Neuro monitoring was stable during the procedure Shay Jones MD Mar 12, 2018 22:00
[2018-03-12] MEDS ORDERED: *morphine SULFATE 8 MG/ML PERIprocedure ONLY ONE (22:06)
--- NOTE | 2018-03-12 22:11 | RADRPT ---
EXAM DATE: 03/12/2018 10:08 PM EDT AGE/SEX: 67 years / Male INDICATIONS: L4-L5 lumbar fusion. CLINICAL DATA: This is the patient's initial encounter. Patient reports that signs and symptoms have been present for 1 day and indicates a pain score of Nonresponsive. MEDICAL/SURGICAL HISTORY: None. None. COMPARISON: No prior exams available for comparison. FINDINGS: Spot films reveal pedicle screw and sharon fixation with disc spacer across L4-5. Normal alignment. CONCLUSION: Fusion as above. Electronically signed by: Aristides James MD 03/12/2018 10:09 PM EDT
[2018-03-12] MEDS ORDERED: ONDANSETRON ODT 4 MG TAB PO PRN (22:15)
[2018-03-12] MEDS: KETOROLAC TROMETHAMINE 30 MG/ML (IVP) VIAL IV PUSH SCH (22:30)
[2018-03-12] MEDS: HYDROmorphone HCL PCA 6 MG/30 ML IV SCH (23:26)
[2018-03-13] MEDS: METHOCARBAMOL 500 MG TAB PO SCH ×3 (00:19→17:34)
[2018-03-13] MEDS: PCA - TOTAL MG DILAUDID DELIVERED PER SHIFT OTHER SCH ×3 (06:00→22:00)
[2018-03-13 07:42] LABS: AUTOMATED NEUTROPHIL # 7.4 TH/MM3 (1.8-7.7); BASOPHIL % 0.1 % (0.0-2.0); LYMPHOCYTE # 0.5 TH/MM3 (1.0-4.8); MEAN CELL VOLUME 93.8 FL (80.0-100.0); MEAN CORPUSCULAR HEMOGLOBIN 32.1 PG (27.0-34.0); MEAN CORPUSCULAR HGB CONC 34.2 % (32.0-36.0); MEAN PLATELET VOLUME 7.1 FL (7.0-11.0); MONO % 6.4 % (0.0-8.0); MONOCYTE # 0.5 TH/MM3 (0-0.9); NEUT % 87.5 % (16.0-70.0); PLATELET COUNT 177 TH/MM3 (150-450); RED BLOOD COUNT 4.05 MIL/MM3 (4.50-5.90); RED CELL DISTRIBUTION WIDTH 13.7 % (11.6-17.2); WHITE BLOOD COUNT 8.5 TH/MM3 (4.0-11.0)
[2018-03-13] MEDS: KETOROLAC TROMETHAMINE 30 MG/ML (IVP) VIAL IV PUSH SCH ×3 (07:50→21:45)
[2018-03-13] MEDS: PANTOPRAZOLE SOD 40 MG DELAYED RELEASE TAB PO SCH (07:50)
[2018-03-13 07:52] LABS: INTERNATIONAL NORMALIZED RATIO 1.1 RATIO; PROTHROMBIN TIME - PATIENT 10.7 SEC (9.8-11.6)
[2018-03-13] MEDS: D5-NS + KCL 20 MEQ INJ 1,000 ML IV SCH ×2 (08:00→18:00)
[2018-03-13 08:07] LABS: BICARBONATE 23.2 MEQ/L (21.0-32.0); CALCIUM 8.1 MG/DL (8.5-10.1); CREATININE 1.1 MG/DL (0.60-1.30)
[2018-03-13] MEDS ORDERED: INSULIN HUMAN REGULAR 1,000 UNITS/10 ML VIAL ONE (09:18)
[2018-03-13] MEDS ORDERED: GLUCAGON 1 MG/ML VIAL OTHER PRN (09:45)
[2018-03-13] MEDS: SODIUM CHLOR 0.9% 1000 ML INJ 1,000 ML IV SCH (09:45)
[2018-03-13] MEDS ORDERED: DEXTROSE 50% IN WATER 50 ML VIAL(D50) IV PUSH PRN (09:45)
[2018-03-13] MEDS ORDERED: PLEASE DISCONTINUE PREVIOUS SUPPLEMENTAL SCALE INSULIN ORDERS ONE (09:45)
[2018-03-13] MEDS: CARVEDILOL 3.125 MG TAB PO SCH ×2 (10:00→21:45)
[2018-03-13] MEDS: LISINOPRIL 10 MG TAB PO SCH (10:00)
[2018-03-13 11:00] VITALS: BP 129/72; PULSE 75; RESP 18; TEMP 98.1; O2SAT 94
[2018-03-13] MEDS: LOW DOSE INSULIN NOVOLIN REGULAR SUPPLEMENTAL SCALE SQ SCH ×3 (11:38→22:16)
[2018-03-13] MEDS: GABAPENTIN 300 MG CAP PO SCH ×2 (13:23→17:34)
[2018-03-13] MEDS: metFORMIN HCL 850 MG TAB PO SCH ×2 (13:23→17:34)
--- NOTE | 2018-03-13 15:38 | HHI.NSPN ---
(Charles Camp) History Chief Complaint: Low back pain earlier when he got up. (Charles Camp) Interval History 03/12: The patient presented to [facility] to have a bilateral L3-4 and L4- 5 decompressive semi-laminectomy with resection of a left L3-4 synovial cyst; a right L4-5 facetectomy and foraminotomy for decompression of the bilateral L4 and L5 nerve roots; and a L4-5 discectomy with interbody fusion, PEEK cage and posterior instrumentation with pedicle screw fixation. The patient remained in PACU pending a med/surg bed being available. 03/13: The patient was transferred to the med/surg floor from PACU this morning. When seen he is awake in bed visiting with his family and watching TV. He has no low back pain at present but did have some when he got up to ambulate. He denies any pain, numbness or tingling to the lower extremities. He does say his penis is being irritated by the Mccollum. Upon evaluation the patient had no sensorimotor deficits. (Charles Camp) Exam Results 03/11/18 03/11/18 03/12/18 03/12/18 03/13/18 03/13/18 05:59 17:59 05:59 17:59 05:59 17:59 Intake Total 3979 ml 360 ml Output Total 1735 ml 530 ml Balance 2244 ml -170 ml Intake Oral 100 ml IV Total 3879 ml 360 ml Output Urine Total 1225 ml 440 ml Drainage Total 110 ml 90 ml Estimated Blood Loss 400 ml Vital Signs Date Time Temp Pulse Resp B/P (MAP) Pulse Ox O2 Delivery O2 Flow Rate FiO2 03/13/18 11:00 98.1 75 18 129/72 (91) 94 03/13/18 07:50 97.7 68 18 134/62 (86) 97 03/13/18 06:00 14 03/13/18 04:00 69 14 149/70 (96) 95 Nasal Cannula 2 03/13/18 00:00 98.1 70 14 154/74 (100) 93 Nasal Cannula 2 03/12/18 23:26 14 03/12/18 23:00 77 17 160/79 (106) 93 Nasal Cannula 2 03/12/18 22:30 78 20 166/81 (109) 96 Nasal Cannula 2 03/12/18 22:15 77 14 164/79 (107) 97 Nasal Cannula 2 03/12/18 22:00 80 16 169/82 (111) 94 Nasal Cannula 2 03/12/18 22:00 14 03/12/18 21:45 80 18 183/77 (112) 100 Nasal Cannula 4 03/12/18 21:30 81 16 176/78 (110) 100 Nasal Cannula 4 03/12/18 21:20 97.5 81 12 188/79 (115) 98 Nasal Cannula 4 03/12/18 10:39 97.8 64 20 118/65 (82) 93 (Charles Camp) Physical Examination GENERAL: Awake & alert in bed visiting w/family & watching TV. Affect normal & readily interacts. No apparent distress. HEENT: Normocephalic, atraumatic. RESPIRATORY: CTAB w/o W/R/R, equal excursion, non-laboured, on RA. CARDIOVASCULAR: S1S2 w/RRR w/o M/G/R. GASTROINTESTINAL: Abdomen soft, non-tender, positive bowel sounds. GENITOURINARY: Mccollum catheter to BSD w/clear yellow urine. MUSCULOSKELETAL: OCAMPO spontaneously & purposefully w/o difficulty. Lower extremities NTTP. Thoracolumbar spine TTP at the surgical incision & right paraspinals, o/w NTTP, dressing intact w/o shadowing; SINA drain to bulb suction w /serosanguinous drainage, dressing intact w/shadowing noted. NEUROLOGICAL: AAOx3. Speech clear &appropriate. Follows simple commands w/o difficulty. Sensation intact to light touch to all extremities. Motor strength is essentially normal to all major flexion & extension muscle groups of the lower extremities. (Charles Camp) Lab, Micro, Other Results Recent Impressions Lumbar Spine X-Ray 03/12/18 0000 Signed Impressions: CONCLUSION: Fusion as above. Laboratory Tests Test 03/12/18 10:25 03/13/18 07:26 Prothrombin Time 10.7 SEC 10.7 SEC Prothromb Time International Ratio 1.1 RATIO 1.1 RATIO Activated Partial Thromboplast Time 25.7 SEC 25.7 SEC White Blood Count 8.5 TH/MM3 Red Blood Count 4.05 MIL/MM3 Hemoglobin 13.0 GM/DL Hematocrit 38.0 % Mean Corpuscular Volume 93.8 FL Mean Corpuscular Hemoglobin 32.1 PG Mean Corpuscular Hemoglobin Concent 34.2 % Red Cell Distribution Width 13.7 % Platelet Count 177 TH/MM3 Mean Platelet Volume 7.1 FL Neutrophils (%) (Auto) 87.5 % Lymphocytes (%) (Auto) 6.0 % Monocytes (%) (Auto) 6.4 % Eosinophils (%) (Auto) 0.0 % Basophils (%) (Auto) 0.1 % Neutrophils # (Auto) 7.4 TH/MM3 Lymphocytes # (Auto) 0.5 TH/MM3 Monocytes # (Auto) 0.5 TH/MM3 Eosinophils # (Auto) 0.0 TH/MM3 Basophils # (Auto) 0.0 TH/MM3 CBC Comment DIFF FINAL Differential Comment Blood Urea Nitrogen 20 MG/DL Creatinine 1.10 MG/DL Random Glucose 218 MG/DL Calcium Level 8.1 MG/DL Sodium Level 138 MEQ/L Potassium Level 4.6 MEQ/L Chloride Level 106 MEQ/L Carbon Dioxide Level 23.2 MEQ/L Anion Gap 9 MEQ/L Estimat Glomerular Filtration Rate 67 ML/MIN (Charles Camp) Medical Decision Making Impression and Plan Impression: Postoperative Diagnosis: 1. 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 Grade 1 L4-5 spondylolisthesis 3. Right lumbar radiculopathy 4. Neurogenic claudication 5. Right L3-4 synovial cyst Patient doing well post-operatively. Some low back pain, controlled w/NETWORK TECHNICAL ANALYST pump. No evident sensorimotor deficits. Past 24 hrs: Afebrile. Hypertensive during the evening. SINA drain output 190 mL since surgery as of shift change this morning. Reviewed labs for today. eGFR 67. POD #1 () s/p: 1. Bilateral L3-4 and L4-5 decompressive semi-laminectomy 2. Resection left L3-4 synovial cyst 3. Right L4-5 facetectomy, foraminotomy, decompression bilateral L4 and L5 nerve roots 4. L4-5 discectomy, interbody fusion, PEEK cage, autograft and allograft bone 5. Bilateral L4-5 posterior instrumentation with pedicle screw fixation Plan: Neuro checks q4h. Vital signs q4h. I&O q8h. Monitor SINA drain output. Mobilise patient w/assistance. LSO brace when OOB. Physical Therapy eval & tx. D/c Mccollum catheter. (Charles Camp) Attending Statement The exam, history, and the medical decision-making described in the above note were completed with the assistance of the mid-level provider. I reviewed and agree with the findings presented. I attest that I had a [id number] encounter with the patient on the same day, and personally performed and documented my assessment and findings in the medical record. Examination 03/13/2018 reveals patient to be awake and alert Moderate drain output Sensorimotor function intact lower extremities Ambulating well Using NETWORK TECHNICAL ANALYST DC Mccollum DC drains 03/14/2018 Replace NETWORK TECHNICAL ANALYST with oral meds Continue therapy (Shay Jones MD) Charles Camp Mar 13, 2018 15:38 Shay Jones MD Mar 14, 2018 19:40
[2018-03-13 16:00] VITALS: BP 122/60; PULSE 73; RESP 18; TEMP 97.5; O2SAT 95
[2018-03-13 19:45] VITALS: BP 129/69; PULSE 90; RESP 18; TEMP 97.8; O2SAT 93
[2018-03-13] MEDS ORDERED: ATORVASTATIN 80 MG TAB PO SCH (21:00)
[2018-03-13] MEDS: GLIMEPIRIDE 4 MG TAB PO SCH (21:45)
[2018-03-14] VITALS (7 sets, daily range): BP systolic 92–118; BP diastolic 50–59; PULSE 67–80; RESP 17–18; TEMP 97.5–100.2; O2SAT 94–98
[2018-03-14] MEDS: METHOCARBAMOL 500 MG TAB PO SCH ×4 (00:38→23:10)
[2018-03-14] MEDS: D5-NS + KCL 20 MEQ INJ 1,000 ML IV SCH ×2 (04:26→14:00)
[2018-03-14] MEDS: KETOROLAC TROMETHAMINE 30 MG/ML (IVP) VIAL IV PUSH SCH ×3 (06:00→22:15)
[2018-03-14] MEDS: PCA - TOTAL MG DILAUDID DELIVERED PER SHIFT OTHER SCH ×2 (06:00→14:00)
[2018-03-14] MEDS: HYDROmorphone HCL PCA 6 MG/30 ML IV SCH (08:15)
[2018-03-14] MEDS: GLIMEPIRIDE 4 MG TAB PO SCH ×2 (08:43→22:12)
[2018-03-14] MEDS: metFORMIN HCL 850 MG TAB PO SCH ×3 (08:43→17:36)
[2018-03-14] MEDS: ISOSORBIDE MONONITRATE 60 MG CR TAB (IMDUR) PO SCH (08:43)
[2018-03-14] MEDS: LOW DOSE INSULIN NOVOLIN REGULAR SUPPLEMENTAL SCALE SQ SCH ×4 (08:43→21:00)
[2018-03-14] MEDS: PANTOPRAZOLE SOD 40 MG DELAYED RELEASE TAB PO SCH (08:44)
[2018-03-14] MEDS: LISINOPRIL 10 MG TAB PO SCH (08:44)
[2018-03-14] MEDS: CARVEDILOL 3.125 MG TAB PO SCH ×2 (08:44→22:12)
[2018-03-14] MEDS: GABAPENTIN 300 MG CAP PO SCH ×3 (08:44→17:36)
[2018-03-14] MEDS: SODIUM CHLOR 0.9% 1000 ML INJ 1,000 ML IV SCH (08:45)
[2018-03-14] MEDS ORDERED: INVOKANA 300 MG PO SCH (09:00)
--- NOTE | 2018-03-14 19:59 | HHI.NSPN ---
History Chief Complaint: Mild fever Interval History Feels warm. Low-grade temp No lower extremity pain weakness or numbness Low back pain mostly controlled with oral medications today. Review of Systems General: Positive for: fever Respiratory: Negative for: shortness of breath, cough Cardiovascular: Negative for: chest pain Genitourinary: Positive for: urinary burning Exam Results Vital Signs Date Time Temp Pulse Resp B/P (MAP) Pulse Ox O2 Delivery O2 Flow Rate FiO2 03/14/18 16:20 99.0 78 17 98/53 (68) 94 03/13/18 04:00 Nasal Cannula 2 Intake and Output 03/14/18 03/14/18 03/15/18 08:00 16:00 00:00 Intake Total 450 ml 1200 ml Output Total 930 ml 30 ml Balance -480 ml 1170 ml Physical Examination GENERAL: Awake & alert in bed visiting w/family HEENT: Normocephalic, atraumatic. RESPIRATORY: Clear and regular CARDIOVASCULAR: Heart rate regular GASTROINTESTINAL: Abdomen soft, non-tender, MUSCULOSKELETAL: Dressing dry and intact. Mild drain output NEUROLOGICAL: AAOx3. Speech clear &appropriate. Follows simple commands w/o difficulty. Sensation intact to light touch to all extremities. Motor strength is essentially normal to all major flexion & extension muscle groups of the lower extremities. Medical Decision Making Impression and Plan Impression: 1. Stable neurologic exam postoperative. Advancing slowly in physical therapy. Minimal assist. Low-grade fever Plan: Discontinue CARDIAC CATHETERIZATION TECHNOLOGIST P.o. medications Continue therapy Chest x-ray, UA, CBC-evaluate fever Anticipate discharge 03/15/2018 if clinical status improves Shay Jones MD Mar 14, 2018 19:59
[2018-03-14] MEDS ORDERED: NALOXONE HCL 0.4 MG/ML AMP IV PUSH PRN (20:00)
[2018-03-14] MEDS ORDERED: MORPHINE SULFATE 2 MG/ML SYRINGE IV PUSH PRN (20:00)
--- NOTE | 2018-03-14 20:05 | HHI.DCPOC ---
Discharge Care Plan Diagnosis: (1) Lumbar radiculopathy (2) Spondylolisthesis of lumbar region (3) Lumbar canal stenosis Your Health Problems Are: Difficulty with ADL Incision/Drains Exercise Tolerance Chronic Pain Goals to Promote Your Health * To prevent worsening of your condition and complications * To maintain your health at the optimal level Directions to Meet Your Goals Take your medications as prescribed Follow your dietary instruction Follow activity as directed Keep your appointments as scheduled Take your immunizations and boosters as scheduled If your symptoms worsen call your PCP, if no PCP go to Urgent Care Center or Emergency Room Smoking is Dangerous to Your Health. Avoid second hand smoke Call the 24-hour hour crisis hotline for domestic abuse at Shay Jones MD Mar 14, 2018 20:05
[2018-03-14] MEDS ORDERED: WALKER WHEELS/F1 MIS (20:07)
[2018-03-14] MEDS ORDERED: ACETAMINOPHEN 325 MG TAB PO PRN (22:30)
[2018-03-14 23:09] LABS: BACTERIA, URINE RARE /hpf; BILIRUBIN, URINE NEG (NEG); BLOOD, URINE NEG (NEG); GLUCOSE,URINE >=500 mg/dL (NEG); KETONE, URINE NEG (NEG); MUCUS URINE FEW /lpf (OCC); NITRITE,URINE NEG (NEG); URINE COLOR YELLOW (YELLW/STRAW); URINE LEUKOCYTE ESTERASE NEG (NEG)
--- NOTE | 2018-03-14 23:22 | RADRPT ---
EXAM DATE: 03/14/2018 11:09 PM EDT AGE/SEX: 67 years / Male INDICATIONS: Short of breath. fever. CLINICAL DATA: This is the patient's subsequent encounter. Patient reports that signs and symptoms h ave been present for 1 week and indicates a pain score of 0/10. MEDICAL/SURGICAL HISTORY: Non-responsive. Non-responsive. COMPARISON: [facility] [place], 08/03/2016. . FINDINGS: A single AP view of the chest demonstrates the lungs to be symmetrically aerated without evidence of mass, infiltrate or effusion. The cardiomediastinal contours are unremarkable. Osseous structures a re intact. Tortuous aorta. CONCLUSION: Unremarkable single view the chest. Mildly tortuous aorta. Electronically signed by: Satya Weems MD 03/14/2018 11:21 PM EDT
[2018-03-15] MEDS: HYDROmorphone HCL 2 MG TAB PO PRN ×2 (03:56→16:30)
[2018-03-15 04:01] VITALS: BP 114/55; PULSE 75; RESP 18; TEMP 99.7; O2SAT 94
[2018-03-15] MEDS ORDERED: MORPHINE SULFATE 4 MG/ML INJ IV PUSH PRN (04:30)
[2018-03-15] MEDS: KETOROLAC TROMETHAMINE 30 MG/ML (IVP) VIAL IV PUSH SCH (06:31)
[2018-03-15 07:28] LABS: AUTOMATED NEUTROPHIL # 6.2 TH/MM3 (1.8-7.7); BASOPHIL % 0.4 % (0.0-2.0); EOSINOPHIL # 0.2 TH/MM3 (0-0.4); EOSINOPHIL % 1.8 % (0.0-4.0); HEMATOCRIT 31.8 % (39.0-51.0); LYMPH % 16.6 % (9.0-44.0); LYMPHOCYTE # 1.5 TH/MM3 (1.0-4.8); MEAN CELL VOLUME 95.9 FL (80.0-100.0); MEAN CORPUSCULAR HEMOGLOBIN 33.1 PG (27.0-34.0); MEAN CORPUSCULAR HGB CONC 34.6 % (32.0-36.0); MEAN PLATELET VOLUME 7.6 FL (7.0-11.0); MONO % 10.6 % (0.0-8.0); MONOCYTE # 0.9 TH/MM3 (0-0.9); NEUT % 70.6 % (16.0-70.0); PLATELET COUNT 156 TH/MM3 (150-450); RED BLOOD COUNT 3.31 MIL/MM3 (4.50-5.90); RED CELL DISTRIBUTION WIDTH 13.8 % (11.6-17.2); WHITE BLOOD COUNT 8.8 TH/MM3 (4.0-11.0)
[2018-03-15 08:00] VITALS: BP 114/57; PULSE 67; RESP 16; TEMP 98.2; O2SAT 94
[2018-03-15] MEDS: LOW DOSE INSULIN NOVOLIN REGULAR SUPPLEMENTAL SCALE SQ SCH ×4 (08:00→21:00)
[2018-03-15] MEDS: LISINOPRIL 10 MG TAB PO SCH (09:00)
[2018-03-15] MEDS: CARVEDILOL 3.125 MG TAB PO SCH ×2 (09:00→21:37)
[2018-03-15] MEDS: METHOCARBAMOL 500 MG TAB PO SCH ×2 (09:39→16:30)
[2018-03-15] MEDS: GLIMEPIRIDE 4 MG TAB PO SCH ×2 (09:39→21:37)
[2018-03-15] MEDS: GABAPENTIN 300 MG CAP PO SCH ×3 (09:39→18:00)
[2018-03-15] MEDS: ISOSORBIDE MONONITRATE 60 MG CR TAB (IMDUR) PO SCH (09:42)
[2018-03-15] MEDS: metFORMIN HCL 850 MG TAB PO SCH ×3 (09:42→18:30)
[2018-03-15] MEDS: PANTOPRAZOLE SOD 40 MG DELAYED RELEASE TAB PO SCH (09:42)
[2018-03-15] MEDS: SODIUM CHLOR 0.9% 1000 ML INJ 1,000 ML IV SCH (09:45)
[2018-03-15] MEDS ORDERED: DILA2TAB4 PO (11:33)
[2018-03-15] MEDS ORDERED: MS C15TA7 PO (11:33)
[2018-03-15 12:00] VITALS: BP 129/60; PULSE 69; RESP 16; TEMP 98.6; O2SAT 97
[2018-03-15 16:00] VITALS: BP 113/59; PULSE 76; RESP 18; TEMP 99.4; O2SAT 94
--- NOTE | 2018-03-15 16:54 | HHI.NSPN ---
History Chief Complaint: Fever of 100.5 today. Interval History 03/12: The patient presented to [facility] to have a bilateral L3-4 and L4- 5 decompressive semi-laminectomy with resection of a left L3-4 synovial cyst; a right L4-5 facetectomy and foraminotomy for decompression of the bilateral L4 and L5 nerve roots; and a L4-5 discectomy with interbody fusion, PEEK cage and posterior instrumentation with pedicle screw fixation. The patient remained in PACU pending a med/surg bed being available. 03/13: The patient was transferred to the med/surg floor from PACU this morning. When seen he is awake in bed visiting with his family and watching TV. He has no low back pain at present but did have some when he got up to ambulate. He denies any pain, numbness or tingling to the lower extremities. He does say his penis is being irritated by the [place]. Upon evaluation the patient had no sensorimotor deficits. 03/14: Feels warm. Low-grade temp No lower extremity pain weakness or numbness Low back pain mostly controlled with oral medications today. 03/15: When seen this afternoon the patient is asleep in bed but awakens to voice. He does say his back is a little sore. He also endorses some dizziness when he gets up. The did say that the patient had a temperature of 100.5 earlier but did not receive any Tylenol for it. She stated that it came down to 99.4 after the patient used the incentive spirometer. In speaking with the Nurse the maximum temperature for her has been 100.3 and when it reaches 100.5 Tylenol will be given. She states that after using the incentive spirometer it came down to 100.1. She does say it has been up each time today but after he does the incentive spirometer it will go down. Upon evaluation there are no sensorimotor deficits. He does have tenderness to the surgical incision. After being seen the patient does say he has weakness to the buttocks when he gets up to ambulate. Also states that the left side of the throat is a little sore. Exam Results 03/13/18 03/13/18 03/14/18 03/14/18 03/15/18 03/15/18 06:00 18:00 06:00 18:00 06:00 18:00 Intake Total 4159 ml 1380 ml 450 ml 1200 ml 360 ml Output Total 1995 ml 1560 ml 900 ml 30 ml 55 ml 25 ml Balance 2164 ml -180 ml -450 ml 1170 ml 305 ml -25 ml Intake Oral 100 ml 1200 ml 450 ml 1200 ml 360 ml IV Total 4059 ml 180 ml Output Urine Total 1445 ml 1420 ml 900 ml Drainage Total 150 ml 140 ml 30 ml 55 ml 25 ml Estimated Blood Loss 400 ml # Voids 3 2 # Bowel Movements 0 0 Vital Signs Date Time Temp Pulse Resp B/P (MAP) Pulse Ox O2 Delivery O2 Flow Rate FiO2 03/15/18 12:00 98.6 69 16 129/60 (83) 97 03/15/18 08:00 98.2 67 16 114/57 (76) 94 03/15/18 07:34 18 03/15/18 04:35 18 03/15/18 04:28 18 03/15/18 04:01 99.7 75 18 114/55 (74) 94 03/15/18 00:29 18 03/15/18 00:11 Room Air 03/14/18 23:31 99.8 80 18 107/52 (70) 96 03/14/18 20:00 100.2 80 18 109/56 (73) 94 03/14/18 16:20 99.0 78 17 98/53 (68) 94 03/14/18 14:00 18 03/14/18 12:00 98.1 71 17 92/50 (64) 94 03/14/18 08:28 97.9 67 18 110/59 (76) 95 03/14/18 08:15 18 03/14/18 06:00 18 03/14/18 04:00 97.8 72 18 111/55 (73) 98 03/14/18 00:00 97.5 79 18 118/59 (78) 96 03/13/18 22:00 18 03/13/18 19:45 97.8 90 18 129/69 (89) 93 03/13/18 16:00 97.5 73 18 122/60 (80) 95 03/13/18 11:00 98.1 75 18 129/72 (91) 94 03/13/18 07:50 97.7 68 18 134/62 (86) 97 03/13/18 06:00 14 03/13/18 04:00 69 14 149/70 (96) 95 Nasal Cannula 2 03/13/18 00:00 98.1 70 14 154/74 (100) 93 Nasal Cannula 2 03/12/18 23:26 14 03/12/18 23:00 77 17 160/79 (106) 93 Nasal Cannula 2 03/12/18 22:30 78 20 166/81 (109) 96 Nasal Cannula 2 03/12/18 22:15 77 14 164/79 (107) 97 Nasal Cannula 2 03/12/18 22:00 80 16 169/82 (111) 94 Nasal Cannula 2 03/12/18 22:00 14 03/12/18 21:45 80 18 183/77 (112) 100 Nasal Cannula 4 03/12/18 21:30 81 16 176/78 (110) 100 Nasal Cannula 4 03/12/18 21:20 97.5 81 12 188/79 (115) 98 Nasal Cannula 4 Physical Examination GENERAL: Asleep in bed but awakens to voice. Family at bedside. Affect essentially normal. Readily interacts. No apparent distress. HEENT: Normocephalic, atraumatic. Throat w/o any erythema or swelling. MUSCULOSKELETAL: OCAMPO spontaneously & purposefully. Lumbar spine TTP at incision , dressing dry & intact. BLE NTTP NEUROLOGICAL: AAOx3. Speech clear & appropriate. Follows simple commands w/o difficulty. Sensation intact to light touch to all extremities. Motor strength is essentially normal to all major flexion & extension muscle groups of the lower extremities. Lab, Micro, Other Results Recent Impressions Chest X-Ray 03/14/18 0000 Signed Impressions: CONCLUSION: Unremarkable single view the chest. Mildly tortuous aorta. Laboratory Tests Test 03/13/18 07:26 03/14/18 22:35 03/15/18 05:50 White Blood Count 8.5 TH/MM3 8.8 TH/MM3 Red Blood Count 4.05 MIL/MM3 3.31 MIL/MM3 Hemoglobin 13.0 GM/DL 11.0 GM/DL Hematocrit 38.0 % 31.8 % Mean Corpuscular Volume 93.8 FL 95.9 FL Mean Corpuscular Hemoglobin 32.1 PG 33.1 PG Mean Corpuscular Hemoglobin Concent 34.2 % 34.6 % Red Cell Distribution Width 13.7 % 13.8 % Platelet Count 177 TH/MM3 156 TH/MM3 Mean Platelet Volume 7.1 FL 7.6 FL Neutrophils (%) (Auto) 87.5 % 70.6 % Lymphocytes (%) (Auto) 6.0 % 16.6 % Monocytes (%) (Auto) 6.4 % 10.6 % Eosinophils (%) (Auto) 0.0 % 1.8 % Basophils (%) (Auto) 0.1 % 0.4 % Neutrophils # (Auto) 7.4 TH/MM3 6.2 TH/MM3 Lymphocytes # (Auto) 0.5 TH/MM3 1.5 TH/MM3 Monocytes # (Auto) 0.5 TH/MM3 0.9 TH/MM3 Eosinophils # (Auto) 0.0 TH/MM3 0.2 TH/MM3 Basophils # (Auto) 0.0 TH/MM3 0.0 TH/MM3 CBC Comment DIFF FINAL DIFF FINAL Differential Comment Prothrombin Time 10.7 SEC Prothromb Time International Ratio 1.1 RATIO Activated Partial Thromboplast Time 25.7 SEC Blood Urea Nitrogen 20 MG/DL Creatinine 1.10 MG/DL Random Glucose 218 MG/DL Calcium Level 8.1 MG/DL Sodium Level 138 MEQ/L Potassium Level 4.6 MEQ/L Chloride Level 106 MEQ/L Carbon Dioxide Level 23.2 MEQ/L Anion Gap 9 MEQ/L Estimat Glomerular Filtration Rate 67 ML/MIN Urine Color YELLOW Urine Turbidity CLEAR Urine pH 5.0 Urine Specific Elmer 1.026 Urine Protein NEG mg/dL Urine Glucose (UA) >=500 mg/dL Urine Ketones NEG mg/dL Urine Occult Blood NEG Urine Nitrite NEG Urine Bilirubin NEG Urine Urobilinogen LESS THAN 2 mg/dL Urine Leukocyte Esterase NEG Urine RBC 1 /hpf Urine WBC 5 /hpf Urine Bacteria RARE /hpf Urine Mucus FEW /lpf Microscopic Urinalysis Comment CULT NOT INDICATED Medical Decision Making Impression and Plan Impression: Postoperative Diagnosis: 1. 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 Grade 1 L4-5 spondylolisthesis 3. Right lumbar radiculopathy 4. Neurogenic claudication 5. Right L3-4 synovial cyst Patient doing well post-operatively. Some low back pain. No evident sensorimotor deficits. No erythema or swelling to throat. Nursing reports T max as 100.3 this afternoon & family reports 100.5, both state temp comes down after using IS. No acetaminophen given. Past 24 hrs: 100.2 T max recorded. Hypotensive yesterday afternoon. SINA drain output 80 mL since surgery as of shift change this morning. (D/c'd 2017.) Physical Therapy feels the patient is able to be discharged home safely using a front wheeled walker w/o any skilled needs. Reviewed labs for today. Drop in haemoglobin level. UA done on w/few bacteria, 5 WBC, and negative leuk esterase & nitrites, therefore culture not indicated. POD #3 () s/p: 1. Bilateral L3-4 and L4-5 decompressive semi-laminectomy 2. Resection left L3-4 synovial cyst 3. Right L4-5 facetectomy, foraminotomy, decompression bilateral L4 and L5 nerve roots 4. L4-5 discectomy, interbody fusion, PEEK cage, autograft and allograft bone 5. Bilateral L4-5 posterior instrumentation with pedicle screw fixation SINA drain d/c'd . Plan: Discussed plan of care w/patient & family, questions answered. Neuro checks q4h. Vital signs q4h. I&O q8h. Mobilise patient w/assistance. LSO brace when OOB. Physical Therapy eval & tx. Possible discharge home tomorrow. Charles Camp Mar 15, 2018 16:54
[2018-03-15 20:15] VITALS: BP 136/64; PULSE 78; RESP 18; TEMP 99.1; O2SAT 92
[2018-03-15] MEDS: MORPHINE SULFATE 15 MG CONTROLLED RELEASE TAB PO SCH (21:38)
[2018-03-15 23:24] VITALS: BP 110/56; PULSE 78; RESP 18; TEMP 98.6; O2SAT 92
[2018-03-16] MEDS: METHOCARBAMOL 500 MG TAB PO SCH ×3 (00:21→15:47)
[2018-03-16 04:34] VITALS: BP 127/60; PULSE 76; RESP 18; TEMP 98.1; O2SAT 91
[2018-03-16] MEDS: HYDROmorphone HCL 2 MG TAB PO PRN ×4 (04:40→17:21)
[2018-03-16 08:00] VITALS: BP 102/53; PULSE 70; RESP 18; TEMP 99.1; O2SAT 92
[2018-03-16] MEDS: LOW DOSE INSULIN NOVOLIN REGULAR SUPPLEMENTAL SCALE SQ SCH ×3 (08:00→17:00)
[2018-03-16] MEDS: GLIMEPIRIDE 4 MG TAB PO SCH (09:07)
[2018-03-16] MEDS: LISINOPRIL 10 MG TAB PO SCH (09:07)
[2018-03-16] MEDS: GABAPENTIN 300 MG CAP PO SCH ×3 (09:08→17:21)
[2018-03-16] MEDS: ISOSORBIDE MONONITRATE 60 MG CR TAB (IMDUR) PO SCH (09:08)
[2018-03-16] MEDS: CARVEDILOL 3.125 MG TAB PO SCH (09:08)
[2018-03-16] MEDS: PANTOPRAZOLE SOD 40 MG DELAYED RELEASE TAB PO SCH (09:08)
[2018-03-16] MEDS: metFORMIN HCL 850 MG TAB PO SCH ×3 (09:08→17:22)
[2018-03-16] MEDS: MORPHINE SULFATE 15 MG CONTROLLED RELEASE TAB PO SCH (09:09)
[2018-03-16] MEDS: SODIUM CHLOR 0.9% 1000 ML INJ 1,000 ML IV SCH (09:45)
[2018-03-16] MEDS: ACETAMINOPHEN/HYDROcodone 325 MG/5 MG TAB PO PRN ×2 (10:36→15:47)
[2018-03-16 12:00] VITALS: BP 95/47; PULSE 77; RESP 18; TEMP 98.6; O2SAT 93
[2018-03-16 16:00] VITALS: BP 101/58; PULSE 74; RESP 18; TEMP 98.6; O2SAT 95
== END 2018-03-16 18:55 | disposition home or self-care (01) | DRG 460 ==
LOC: HSDI 09:06 → HPAC 03-13 00:33 → N06A 03-13 10:57 → EDSTATUS 03-13 11:30
PROVIDERS: ADMIT Neurological Surgery; ATTEND Neurological Surgery
PROC: 0ST20ZZ Resection of Lumbar Vertebral Disc, Open Approach (ICD-10-PCS; 2018-03-12)
PROC: 0SB00ZZ Excision of Lumbar Vertebral Joint, Open Approach (ICD-10-PCS; 2018-03-12)
PROC: 01NB0ZZ Release Lumbar Nerve, Open Approach (ICD-10-PCS; 2018-03-12)
PROC: 0SG00AJ Fusion of Lumbar Vertebral Joint with Interbody Fusion Device, Posterior Approach, Anterior Column, Open Approach (ICD-10-PCS; principal; 2018-03-12 12:33)
DX: M48.062 Spinal stenosis, lumbar region with neurogenic claudication (principal); I95.9 Hypotension, unspecified; M54.16 Radiculopathy, lumbar region; M43.16 Spondylolisthesis, lumbar region; M71.38 Other bursal cyst, other site; R50.9 Fever, unspecified; R42 Dizziness and giddiness; G89.29 Other chronic pain
CPT/HCPCS: 71045; 72100; 76000; 80048; 81001; 82948; 85025; 85610; 85730; 86850; 86900; 86901; 94150; C1713; C9290; J0690; J1100; J1170; J1580; J1644; J1815; J1885; J2175; J2270; J2370; J2405; J3010; J3480; J7030; J7120; L0484